=== PATIENT | male | born 1990 | race Caucasian/White ===

== ENCOUNTER → 2016-10-10 | Outpatient (CLI) | payer BC ==
[~2016-10-10] MED LIST: AMOX1TAB12; AZIT500T4 PO; HYDR-3702 PO; PRED20TA PO
[2016-10-10 14:03] VITALS: BP 128/83
--- NOTE | 2016-10-10 14:03 | Urgent Care T Sheet Gen (E) ---
Intake General Temperature (Fahrenheit): 98.3 Pulse: 61 Blood Pressure Systolic: 128 Blood Pressure Diastolic: 83 Respirations: 18 SPO2: 97 Description of Symptoms Patient presents with rash x 1 week. Started on the legs and has spread. Patient states he has switched detergents however the rash spares areas which clothes cover (feet, upper arms, etc). States it itches. Only temporary relief he gets is taking a cold shower. Benadryl orally and topically as well as hydrocortisone cream doesn't work. No SOB or cough. Denies being exposed to anything. No one else in the home has a similar rash. History of Present Illness Allergies: Coded Allergies: No Known Drug Allergies (Unverified , 02/08/13) Home Meds Active Scripts Prednisone 20 Mg [id number] Mg PO DAILY #10 TAB 40mg po daily x 3 days then 20mg daily x 4 days Prov:MIGUEL PIZANO 10/10/16 Hydrocodone Bit/Acetaminophen (Hydrocodon-Acetaminophen 5-325)1 Each Tablet1-2 Each PO Q6H PRN PAIN #10 TAB Prov:VISH SOTO MD 07/18/15 Respiratory Constitutional Symptoms: No syptoms reported EENTM: No symptoms reported Respiratory: No symptoms reported Skin: Rash All Other Systems Reviewed Remaining Systems: All other systems reviewed with negative findings Past Wajyqui-Yxuiwv-Alxixq Hx Patient's Social History Alcohol Use: Occasionally Uses Smoking Status: Never smoker Recent foreign travel: No Surgeries/Hospitalizations Hospitalization/Surgery Hx: none Respiratory Respiratory History: None Cardiovascular Cardiovascular History: None Gastrointestinal GI/Endocrine History: None Diabetes Diabetes: No HEENT Impaired Vision: Contacts Hearing Impaired: None Psychosocial Behavior Disorders: None Physical Exam Physical Exam General Appearance: WD/WN No apparent distress Respiratory Exam: No respiratory distress Skin Exam: Rash (generalized red, slightly raised, papular rash. worse along the lower legs and forearms. spares the face and feet. rash is blanchable. no burrows in webs of fingers. worse along the sock line.) Departure Urgent Care Impression Impression: Primary Impression: Rash Departure Disposition: 01 HOME OR SELF-CARE Condition: Stable Referrals: PINKY RANDLE MD (PCP) Additional Instructions: I have started the patient on Prednisone for treatment of the rash. The rash doesn't have a specific look to it. Doesn't look like scabies or bed bugs. I doubt it is from the new detergent as parts of the body which come in contact with clothes are spared. Continue Benadryl as directed If no better may need steroid shot Patient understands DC instructions. All questions were answered. Scripts Prednisone 20 Mg [id number] Mg PO DAILY #10 TAB 40mg po daily x 3 days then 20mg daily x 4 days Prov:MIGUEL PIZANO 10/10/16 End of report . MGIUEL PIZANO October 10, 2016 10:59
== END ==
LOC: MHUC 10:42
PROVIDERS: ATTEND Physician Assistant
DX: R21 Rash and other nonspecific skin eruption (principal)
CPT/HCPCS: 99213